=== PATIENT | female | born 1940 | race Caucasian/White ===

== ENCOUNTER 2017-02-12 17:31 | Inpatient (IN) ==
[2017-02-12] MEDS ORDERED: ASPIRIN 325 MG TABLET PO STA (17:57)
[2017-02-12] MEDS ORDERED: NITROGLYCERIN 2% OINT 1 INCH/GM PACK TOP STA (17:57)
--- NOTE | 2017-02-12 18:00 | EKG Report ---
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
[2017-02-12] MEDS ORDERED: NITROGLYCERIN 2% OINT 1 INCH/GM PACK TOP ONE (18:08)
[2017-02-12] MEDS ORDERED: ASPIRIN 325 MG TABLET ONE (18:08)
--- NOTE | 2017-02-12 18:22 | XRay Report ---
Portable chest Date: 02/12/2017 Clinical history: Chest pain Comparison: 11/21/2016 Technique: Portable AP sitting chest Findings: The heart is small and compressed by the over expanded lungs. Stable left subclavian atrioventricular pacemaker. Coronary artery stents. Chronic scarring in the lungs with minimal atelectasis at the left lung base. Stable mediastinum and osseous structures. Impression: COPD with chronic scarring. Subsegmental atelectasis at the left lung base. Coronary artery stents with left subclavian atrioventricular permanent pacemaker. PROCEDURE INTERPRETED AT [facility] DEPARTMENT OF RADIOLOGY Final Report Signed by: Dr. Yuki Montes
--- NOTE | 2017-02-12 18:24 | Emergency Department Note ---
Gladys Almazan Hilary, am scribing for, and in the presence of, Eugene Hartman MD 18:05. Minnie Almazan Charles R, MD, personally performed the services described in this documentation, ascribed by Rosa Graham in my presence, and it is both accurate and complete 824 . Arrival - Arrival Chief Complaint: Chest Pain ED Nursing Triage Note: pt had chest pain 2 hours s/p eating cereal and yogurt and milk this am. denies pain now Mode of Arrival: Stretcher Limitations: No Limitations Source: Patient, RN Notes Reviewed Time Seen by Provider: 02/12/17 17:47 - History of Present Illness HPI Narrative: Pt is a 76 y/o female presenting to the ED via EMS with c/o chest pain which onset 1600. Pt states she does not normally have chest pains and SOB but was experiencing both of those after breakfast. Pt confirms that it is now resolved but denies abdominal pain, sweating, or nausea. Pt has a pacemaker and stents. Onset (ago): hour(s) Consistency: now resolved Date of Last Menstrual Period: hyst Allergies/Adverse Reactions: Allergies Allergy/AdvReac Type Severity Reaction Status Date / Time codeine AdvReac Intermediate Nausea Verified 09/24/15 16:04 Hydromorphone [From Dilaudid] AdvReac Intermediate Nausea Verified 11/21/16 11: 13 metoclopramide [From Reglan] AdvReac Intermediate unsure - Verified 09/24/15 16: 08 just states "it does not agree with me" methiolate Allergy Severe RASH Uncoded 11/21/16 11:13 Home Medications: Home Medications Medication Instructions Recorded Confirmed Type Bisoprolol [Zebeta] 5 mg PO DAILY 09/24/15 11/21/16 History Cilostazol [Pletal] 50 mg PO BID 09/24/15 11/21/16 History Levothyroxine Tab [Synthroid Tab] 25 mcg PO DAILY@0700 09/24/15 11/21/16 History Magnesium Oxide 400 mg PO BID 09/24/15 11/21/16 History Montelukast Tab [Singulair Tab] 10 mg PO DAILY 09/24/15 11/21/16 History Nitroglycerin [Nitroglycerin SL 0.4 mg SL Q5M PRN 09/24/15 11/21/16 History Tab] Omeprazole [Prilosec] 20 mg PO BID 09/24/15 11/21/16 History Potassium Chloride Packet 20 meq PO QID 09/24/15 11/21/16 History Rosuvastatin Calcium [Crestor] 5 mg PO BEDTIME 09/24/15 11/21/16 History amLODIPine [Norvasc] 2.5 mg PO DAILY 09/24/15 11/21/16 History Acetaminophen Tab [Tylenol Tab] 325 mg PO BID tablet 09/29/15 11/21/16 Rx Aspirin Chew Tab 81 mg PO DAILY #0 tablet 09/29/15 11/21/16 Rx Clopidogrel [Plavix] 75 mg PO DAILY #30 tablet 09/29/15 11/21/16 Rx Isosorbide Dinitrate [Isordil] 10 mg PO BID #60 tablet 09/29/15 11/21/16 Rx Cholecalciferol (Vitamin D3) 50,000 unit PO DIRECTED 11/21/16 11/21/16 History [Vitamin D3] Review of System - Review of System 12 point system: reviewed and no additional remarkable complaints except as stated - Review of System Constitutional: Absent: diaphoresis, fever Cardiovascular: Present: chest pain, dyspnea on exertion Medical,Surgical,& Family Hx - Medical History Cardio: History of: Cardiac Dysrhythmia (atrial fibrillation prior to pacemaker) , CAD (history of coronary stent in the LAD and the right coronary artery-2006) , Hypertension, PA, Pacemaker (in about 2007), Cardiovascular Problems No history of: Aneurysm, Cerebrovascular Disease, Congenital Heart Disease, CHF, PVD, Valvular Heart Disease Neurology: No history of: Seizures HEENT: History of: 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 of stents in 2006 ), Cardiac Surgery (pacemaker put in 2008) Patient Denies: Femoral-Popliteal Bypass Graft, Carotid Endarterectomy, Internal Defibrillator, Vascular Access Devices Thoracic Surgeries: Patient denies;: Organ Transplant, Lobectomy Neurologic Surgeries: Patient denies: Neurologic Surgery HEENT Surgeries: Surgical HX of: Tonsilectomy & Adenoidectomy Patient denies: Carotid Endarterectomy, Eye Surgery, Thyroid Surgery Abdominal Surgeries: Surgical HX of: Appendectomy, Cholecystectomy, Colonoscopy , EGD Patient denies: Gastric Bypass Surgery, Hernia Repair, Splenectomy Reproductive Surgeries: Surgical HX of;: Breast Surgery (neg. breast biopsy), Gynecologic Surgery, Hysterectomy Patient denies;: Section, Dilation and Curettage, Tubal Ligation Orthopedic Surgeries: Patient denies;: Implanted Devices, Orthopedic Surgery, Spinal Surgery, Total Hip Replacement, Total Knee Replacement - Family History Family History: Reports;: Family Diabetes, Family Heart Disease Denies;: Family Anesthesia Reaction, Family Cancer, Family Hypertension, Family Psychiatric Problems, Family Stroke - Social History Smoking Status: Never smoker Frequency of Alcohol Use: None Type of Drug Use: None Exam Vital Signs: Vital Signs Temperature 97.3 F L 02/12/17 17:38 Pulse Rate 62 02/12/17 17:38 Respiratory Rate 18 02/12/17 17:45 Blood Pressure 144/58 02/12/17 17:38 O2 Sat by Pulse Oximetry 98 02/12/17 17:38 - General General appearance: alert, in no apparent distress - Head Head exam: Present: atraumatic, normocephalic - Eye Eye exam: Present: normal appearance, PERRL, EOMI - ENT ENT exam: Present: mucous membranes moist, TM's normal bilaterally - Neck Neck exam: Present: full ROM, trachea midline. Absent: tenderness - Chest Chest inspection: Present: symmetric chest wall rise. Absent: tenderness - Respiratory Respiratory exam: Present: normal lung sounds bilaterally - Cardiovascular Cardiovascular exam: Present: bradycardia - Abdominal Exam Abdominal exam: Present: soft. Absent: distention, tenderness - Extremities Exam Extremities exam: Present: full ROM. Absent: tenderness - Back Exam Back exam: Present: full ROM. Absent: tenderness - Neurological Exam Neurological exam: Present: alert, oriented X3, CN II-XII intact. Absent: motor sensory deficit - Psychiatric Psychiatric exam: Present: normal affect, normal mood - Skin Skin exam: Present: warm, dry, intact, normal color. Absent: rash Course - Consultations Consultation #1: Dr. Pinto will admit for Dr. Guerra Time: 18:53 Results - Labs CBC & BMP: 02/12/17 18:38 02/12/17 18:38 Disposition Clinical Impression: Chest pain, Coronary artery disease Case discussed with: patient Disposition: Still a Patient Condition: Stable Time of Disposition: 18:54
[2017-02-12 19:01] LABS: Basophils % 0.3 % (0.0-0.8); Eosinophils # 0.1 10*3/uL (0.0-0.87); Eosinophils % 0.7 % (0.00-10.9); Hemoglobin 13.4 GM/DL (12.0-16.0); Immature Granulocytes % 0.1 %; Immature Granulocytes Absolute 0.01 #; Lymphocytes # 1.4 10*3/uL (1.4-4.0); Lymphocytes % 19.5 % (21.3-54.2); Mean Corpuscular HGB Conc 35.3 GM/DL (32-36); Mean Corpuscular Hemoglobin 31 PG (27-34); Mean Platelet Volume 9.3 FL (9.6-12.0); Monocytes # 0.5 10*3/uL (0.11-0.8); Monocytes % 6.7 % (1.7-12.7); Neutrophils # 5.4 10*3/uL (1.4-7.4); Neutrophils % 72.7 % (38.7-73.9); Platelet Count 223 T/CUMM (130-400); Red Blood Count 4.27 MC/CUMM (3.8-5.5); Red Cell Distribution Width 12.7 % (9.3-17.3); White Blood Count 7.4 T/CUMM (4-12)
[2017-02-12 19:11] LABS: PT Patient Result 10.2 SECS
[2017-02-12 19:25] LABS: Alanine Aminotransferase 19 U/L (13-56); Albumin 3.9 G/DL (3.4-5.0); Alkaline Phosphatase 81 U/L (45-117); Aspartate Amino Transferase 16 U/L (0-37); Bilirubin,Total < 0.39 MG/DL (0.2-1.0); Blood Urea Nitrogen 7 MG/DL (7-18); Calcium 9.2 MG/DL (8.5-10.1); Glucose 108 MG/DL (74-106); Magnesium 2.5 MG/DL (1.8-2.4); Osmolality,Calculated 277.4 MOS/KG (273-304); Potassium 4.1 MMOL/L (3.5-5.1); Sodium 140 MMOL/L (136-145); Total Protein 7.3 G/DL (6.4-8.3)
[2017-02-12] MEDS ORDERED: POTASSIUM CHLORIDE 20 MEQ TABLET PO PRN (20:37)
[2017-02-12] MEDS ORDERED: MAGNESIUM SULF RIDER 4 GM in PREMIX 1 EACH IV PRN (20:37)
[2017-02-12] MEDS ORDERED: DEXTROSE 50% 25 GM/50 ML VIAL IV PRN (20:37)
[2017-02-12] MEDS ORDERED: GLUCAGON 1 MG VIAL IM PRN (20:37)
[2017-02-12] MEDS ORDERED: ONDANSETRON 4 MG/2 ML VIAL IV PRN (20:37)
[2017-02-12] MEDS ORDERED: MAGNESIUM SULF RIDER 2 GM in PREMIX 1 EACH IV PRN (20:37)
[2017-02-12] MEDS: SODIUM CHLORIDE 0.9% 1,000 ML IV SCH (21:22)
[2017-02-12] MEDS: ENOXAPARIN 80 MG/0.8 ML SYRINGE SUBCUT SCH (21:23)
[2017-02-12] MEDS: INSULIN REGULAR 100 UNIT/ML SUBCUT SCH (22:05)
--- NOTE | 2017-02-12 22:42 | EKG Report ---
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
[2017-02-13] MEDS: NITROGLYCERIN 2% OINT 1 INCH/GM PACK TOP SCH ×4 (00:50→17:24)
[2017-02-13 01:05] LABS: Basophils % 0.4 % (0.0-0.8); Eosinophils # 0.1 10*3/uL (0.0-0.87); Eosinophils % 2.1 % (0.00-10.9); Hematocrit 37.1 VOL% (35.7-47.0); Hemoglobin 12.9 GM/DL (12.0-16.0); Immature Granulocytes % 0.4 %; Immature Granulocytes Absolute 0.02 #; Lymphocytes # 1.6 10*3/uL (1.4-4.0); Lymphocytes % 30.7 % (21.3-54.2); Mean Corpuscular HGB Conc 34.8 GM/DL (32-36); Mean Corpuscular Hemoglobin 32 PG (27-34); Mean Corpuscular Volume 91.4 FL (87-102); Mean Platelet Volume 9.6 FL (9.6-12.0); Monocytes # 0.4 10*3/uL (0.11-0.8); Monocytes % 8.2 % (1.7-12.7); Neutrophils # 3.1 10*3/uL (1.4-7.4); Neutrophils % 58.2 % (38.7-73.9); Platelet Count 184 T/CUMM (130-400); Red Blood Count 4.06 MC/CUMM (3.8-5.5); Red Cell Distribution Width 12.5 % (9.3-17.3); White Blood Count 5.3 T/CUMM (4-12)
[2017-02-13] MEDS ORDERED: PNEUMOCOCCAL VACCINE (13 VALENT) 0.5 ML SYRINGE IM ONE (01:13)
[2017-02-13 01:40] LABS: Alanine Aminotransferase 16 U/L (13-56); Albumin 3.1 G/DL (3.4-5.0); Alkaline Phosphatase 69 U/L (45-117); Aspartate Amino Transferase 17 U/L (0-37); Bilirubin,Total < 0.39 MG/DL (0.2-1.0); Blood Urea Nitrogen 7 MG/DL (7-18); Calcium 8.3 MG/DL (8.5-10.1); Cholesterol 218 MG/DL (50-200); Glucose 99 MG/DL (74-106); HDL Cholesterol 70 MG/DL (40-60); Magnesium 2.3 MG/DL (1.8-2.4); Potassium 3.9 MMOL/L (3.5-5.1); Risk Ratio 3.11; Sodium 143 MMOL/L (136-145); Total Protein 6.4 G/DL (6.4-8.3); Triglycerides 95 MG/DL (2-150)
--- NOTE | 2017-02-13 08:53 | XRay Report ---
Exam: XR chest 2V Indication: Shortness of breath Comparison study: 02/12/2017 Findings: Left chest pacemaker device and wire leads appear in similar position. Lungs are mildly hyperexpanded with interstitial prominence in the perihilar regions and lung bases, suggesting a degree of underlying scarring. This is most prominent in the right hilar region which appears grossly unchanged although the possibility of underlying interstitial infiltrates are difficult to exclude. There is no focal consolidation. There is no pneumothorax or pleural effusion. Osseous structures appear stable from prior. Impression: Essentially stable appearance of the chest with suggestion of underlying interstitial scarring. Minimal superimposed interstitial infiltrates are difficult to exclude. PROCEDURE INTERPRETED AT [facility] DEPARTMENT OF RADIOLOGY Final Report Signed by: Juan Murphy
[2017-02-13] MEDS ORDERED: PANTOPRAZOLE 40 MG TABLET PO SCH (09:00)
[2017-02-13] MEDS ORDERED: ASPIRIN EC 325 MG TABLET PO SCH (09:00)
[2017-02-13] MEDS: ENOXAPARIN 80 MG/0.8 ML SYRINGE SUBCUT SCH ×2 (09:07→21:25)
[2017-02-13] MEDS: INSULIN REGULAR 100 UNIT/ML SUBCUT SCH ×4 (09:08→21:25)
--- NOTE | 2017-02-13 11:30 | Cardiology History & Physical ---
Addendum entered and electronically signed by Jeny Eubanks NP 02/13/17 12:10 : Upon review of her records and after discussion with the patient, her corrected home medication list is listed as follows: Amlodipine 2.5 mg 1 tablet p.o. daily Aspirin 81 mg 1 tablet p.o. daily Bisoprolol fumarate 10 mg one half tablet orally twice daily Cilostazol 50 mg 1 p.o. twice daily Isosorbide dinitrate 10 mg 1 p.o. twice daily Levothyroxine 50 mcg 1/2-1 tablet orally daily Magnesium oxide 400 mg 1 p.o. twice daily Nitroglycerin 0.4 mg sublingual tablet 1 every 5 minutes 3 as needed Omeprazole 20 mg 1 p.o. twice daily Plavix 75 mg 1 p.o. daily Potassium chloride ER 20 mEq 1 p.o. 4 times daily Singulair 10 mg 1 p.o. daily Vitamin D2 50,000 unit 1 p.o. weekly Tranxene 3.75 mg 1/2-1 tablet every 6 hours as needed Original Note: <Jeny Eubanks - Last Filed: 02/13/17 11:59> Assessment and Plan - Time spent with patient Time spent with patient: Greater than 30 minutes (due to assessment, plan, and documentation) (1) Chest pain Status: Acute Assessment and plan: Has had 3 sets of negative troponins and unremarkable EKG. Some typical features of angina. Will hold NPO and further discuss cardiac evaluation with Dr. Pinto. Current Visit: Yes (2) Coronary artery disease Status: Chronic Assessment and plan: On 07/30/2007, Ms. Velez received a stent to the proximal LAD and to the proximal RCA. One month later, she underwent repeat catheterization and underwent stent of the LAD for in-stent restenosis. Since that time she has had 2 subsequent heart catheterizations, the most recent being 09/27/2015 following a non-STEMI. At that time she was found to have significant disease in a small first and second diagonal (not for intervention), mild disease throughout the remainder of the coronary arterial system, mild to moderate disease of the ostium of the RCA, widely patent prior coronary stents. At that time she was found to have normal global LV systolic function with EF greater than 65%. Current Visit: Yes (3) History of cardiac pacemaker Status: Chronic Assessment and plan: She recently underwent pacemaker generator change by Dr. Pinto on November 21, 2016. Current Visit: Yes (4) Hypertension Status: Chronic Assessment and plan: The patient's home medications do not match what she reports she is taking. We will ask the nurses to correct these and continue her home medications. Will monitor and make adjustments as needed. Current Visit: Yes (5) History of coronary artery stent placement Status: Chronic Assessment and plan: On 07/30/2007, Ms. Velez received a stent to the proximal LAD and to the proximal RCA. One month later, she underwent repeat catheterization and underwent stent of the LAD for in-stent restenosis. Since that time she has had 2 subsequent heart catheterizations, the most recent being 09/27/2015 following a non-STEMI. At that time she was found to have significant disease in a small first and second diagonal (not for intervention), mild disease throughout the remainder of the coronary arterial system, mild to moderate disease of the ostium of the RCA, widely patent prior coronary stents. At that time she was found to have normal global LV systolic function with EF greater than 65%. Current Visit: No (6) Hyperlipidemia Status: Chronic Assessment and plan: Crestor is listed as a home medication, but the patient reports she was taken off of this at her previous visit with her PCP and is unsure why. She denies any knowledge of an allergy or intolerance to statin therapy so we will resume her Crestor at a low dose and see how she tolerates. 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 POLLACK PCP: DR. MATAMOROS Ms. Velez is a 76 year old female with a history of coronary artery disease status post coronary artery stent placement, hypercholesterolemia, sick sinus syndrome with symptomatic bradycardia, status post dual-chamber pacemaker. On 07/30/2007, Ms. Velez received a stent to the proximal LAD and to the proximal RCA. One month later, she underwent repeat catheterization and underwent stent of the LAD for in-stent restenosis. Since that time she has had 2 subsequent heart catheterizations, the most recent being 09/27/2015 following a non-STEMI. At that time she was found to have significant disease in a small first and second diagonal (not for intervention), mild disease throughout the remainder of the coronary arterial system, mild to moderate disease of the ostium of the RCA, widely patent prior coronary stents. At that time she was found to have normal global LV systolic function with EF greater than 65%. She recently underwent pacemaker generator change by Dr. Pinto on November 21, 2016. She presented to the emergency room last night with complaints of chest pain. Her sister, and [facility] professional nursing tutor, is at the bedside and helps providing some of the history. She tells me yesterday morning around 8 AM she had Cheerios and yogurt for breakfast. About 2 and half hours later she tells me she got up from the couch and "felt funny." She reports she had an episode of dizziness followed by midsternal chest pain. She describes the pain as a tightness and rates it as a 5-6 out of 10. She did not have any associated shortness of breath, diaphoresis, nausea, vomiting, palpitations, syncope. She called her sister, Supriya Arredondo, and after her arrival she took 3 sublingual nitroglycerin with very little relief. Her sister then insisted that she go to the emergency room for further evaluation. After her arrival, she was given an additional nitroglycerin which relieved her pain. Her pain lasted approximately 2-3 hours in duration. She also reports this pain she had yesterday feels very similar to the pain that she had with her [place] in 2015. Her sister and other family are also present and reports that for the last several months she has had dyspnea on exertion when walking. Short distances. Her sister tells me that she has noticed this even before her pacemaker generator battery was changed and she has continued to notice it during the past several weeks. Currently, she has had 3 sets of negative troponins. Her EKG shows no acute ischemic changes. She is AV paced. Creatinine is 0.7, BNP 94, potassium 3.9. CBC is normal. Cholesterol is elevated to 18 with an LDL of 140, HDL [address] Pinto to follow with further plan and recommendations. Home Medications Medication Instructions Recorded Confirmed Type Levothyroxine Tab [Synthroid Tab] 25 mcg PO DAILY@0700 09/24/15 02/13/17 History Magnesium Oxide 400 mg PO BID 09/24/15 02/12/17 History Montelukast Tab [Singulair Tab] 10 mg PO BEDTIME 09/24/15 02/12/17 History Nitroglycerin [Nitroglycerin SL 0.4 mg SL Q5M PRN 09/24/15 02/12/17 History Tab] Omeprazole [Prilosec] 20 mg PO BID 09/24/15 02/12/17 History Rosuvastatin Calcium [Crestor] 5 mg PO BEDTIME 09/24/15 02/12/17 History Isosorbide Dinitrate [Isordil] 10 mg PO BID #60 tablet 09/29/15 02/12/17 Rx Potassium Chloride [Klor-Con M20] 20 meq PO QID 02/12/17 02/12/17 History Aspirin [Aspirin EC] 81 mg PO DAILY 02/13/17 02/13/17 History Bisoprolol Fumarate 5 mg PO BID 02/13/17 02/13/17 History Cilostazol [Pletal] 50 mg PO BID 02/13/17 02/13/17 History Clopidogrel [Plavix] 75 mg PO DAILY 02/13/17 02/13/17 History Clorazepate [Tranxene] 3.75 mg PO Q6H PRN 02/13/17 02/13/17 History Ergocalciferol (Vitamin D2) 50,000 unit PO Q7DAY 02/13/17 02/13/17 History [Vitamin D2] amLODIPine [Norvasc] 2.5 mg PO DAILY 02/13/17 02/13/17 History Allergies Allergy/AdvReac Type Severity Reaction Status Date / Time codeine AdvReac Intermediate Nausea Verified 09/24/15 16:04 Hydromorphone [From Dilaudid] AdvReac Intermediate Nausea Verified 11/21/16 11: 13 metoclopramide [From Reglan] AdvReac Intermediate unsure - Verified 09/24/15 16: 08 just states "it does not agree with me" methiolate Allergy Severe RASH Uncoded 11/21/16 11:13 Review of systems: - Constitutional: Present: As per HPI. Absent: anorexia, chills, daytime sleepiness, excessive sweating, fever(s), frequent falls, headache(s), increased appetite, lethargy, malaise, night sweats, stops breathing during sleep, weakness, weight gain, weight loss, fatigue. - EENT Eyes: Present: As per HPI. Absent: blurry vision, diplopia, loss of vision Ears: Present: As per HPI. Absent: decreased hearing, ear discharge, ear pain Nose, mouth and throat: Present: As per HPI. Absent: dysphagia, epistaxis, headache(s), hoarseness, lip swelling, nasal congestion, neck mass, neck pain, sinus pressure, sore throat, throat swelling, tongue swelling, vertigo - Cardiovascular: Present: chest pain at rest, dyspnea on exertion, edema, as per HPI. Absent: chest pain with activity, dyspnea, claudication, diaphoresis, radiating jaw, neck or arm pain, lightheadedness, orthopnea, palpitations, PND - Respiratory: Present: dyspnea on exertion, as per HPI. Absent: dyspnea, cough , hemoptysis, wheezing, snoring, pain on inspiration - Gastrointestinal: Present: As per HPI. Absent: abdominal pain, bloating, change in bowel habits, constipation, diarrhea, heartburn, hematemesis, hematochezia, loose stools, melena, nausea, vomiting - Genitourinary: Present: As per HPI. Absent: difficulty urinating, dysuria, flank pain, hematuria, nocturia, urinary frequency, urinary incontinence - Musculoskeletal: Present: As per HPI. Absent: arthralgias, back pain, joint swelling, limited range of motion, muscle cramps, muscle weakness, myalgias - Neurological: Present: dizziness, As per HPI. Absent: abnormal gait, abnormal speech, behavioral changes, confusion, convulsions, disequilibrium, focal weakness, frequent falls, headache(s), memory loss, numbness, paresthesias, radicular pain, syncope, tremor(s) - Psychiatric: Present: anxiety, As per HPI. Absent: confusion, depression, panic attacks - Endocrine: Present: As per HPI. Absent: cold intolerance, fatigue, heat intolerance, polydipsia, polyphagia - Hematologic/Lymphatic: Present: As per HPI. 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 of stents in 2006 ), Cardiac Surgery (pacemaker put in 2008) Patient Denies: Femoral-Popliteal Bypass Graft, Carotid Endarterectomy, Internal Defibrillator, Vascular Access Devices Thoracic Surgeries: Patient denies;: Organ Transplant, Lobectomy Neurologic Surgeries: Patient denies: Neurologic Surgery HEENT Surgeries: Surgical HX of: Tonsilectomy & Adenoidectomy Patient denies: Carotid Endarterectomy, Eye Surgery, Thyroid Surgery Abdominal Surgeries: Surgical HX of: Appendectomy, Cholecystectomy, Colonoscopy , EGD Patient denies: Gastric Bypass Surgery, Hernia Repair, Splenectomy Reproductive Surgeries: Surgical HX of;: Breast Surgery (neg. breast biopsy), Gynecologic Surgery, Hysterectomy Patient denies;: Section, Dilation and Curettage, Tubal Ligation Orthopedic Surgeries: Patient denies;: Implanted Devices, Orthopedic Surgery, Spinal Surgery, Total Hip Replacement, Total Knee Replacement - Family History Family History: Reports;: Family Diabetes, Family Heart Disease Denies;: Family Anesthesia Reaction, Family Cancer, Family Hypertension, Family Psychiatric Problems, Family Stroke - Social History Smoking Status: Never smoker Frequency of Alcohol Use: None Type of Drug Use: None Marital Status: Functional capacity: independent ambulation Cardiology Physical Exam - Constitutional Vitals: Vital Signs Temp Pulse Resp BP Pulse Ox 97.4 F L 59 L 18 152/71 99 02/13/17 08:00 02/13/17 08:00 02/13/17 08:00 02/13/17 08:00 02/13/17 08:00 Intake and Output 02/12/17 02/13/17 02/13/17 22:59 06:59 14:59 Intake Total 60 / 60 Output Total 700 / 700 Balance -640 / -640 Intake: Oral 60 / 60 Output: Urine 700 / 700 Other: Voiding Method Toilet Urinal # Voids 1 # Bowel Movements 0 Weight 152 lb 152 lb Exam: General appearance: Pleasant and cooperative. Normal weight, no acute distress. - Head Head exam: Present: normal inspection, normocephalic, atraumatic. Absent: hematoma, laceration - Eye Eye exam: Present: EOMI. Absent: conjunctival injection, nystagmus, periorbital swelling, scleral icterus, laceration to eyelids Pupils: Present: PERRL. Absent: constricted, dilated, fixed, irregular, unequal - ENT ENT exam: Present: normal exam, normal external ear exam - Neck Neck exam: Present: normal inspection. Absent: lymphadenopathy, meningismus, tenderness, thyromegaly - Respiratory Respiratory exam: Present: clear to auscultation bilaterally. Absent: accessory muscle use, chest wall tenderness - Cardiovascular Cardiovascular exam: Present: regular rate and rhythm. Absent: carotid bruit, gallop, JVD, rubs, murmur - GI/Abdominal GI/Abdominal exam: Present: normal bowel sounds, soft. Absent: distended, firm , guarding, hernia, mass, tenderness, rebound. - Extremities Exam Extremities exam: Present: normal inspection, normal capillary refill. Upper extremity pulses 2+. Lower extremity pulses 2+. 1-2+ pitting edema to bilateral lower extremities. Absent: calf tenderness - Back Exam Back exam: Present: normal inspection. Absent: muscle spasm, vertebral tenderness - Neurological Exam Neurological exam: Present: alert, oriented X3, grossly intact without resting or essential tremor - Psychiatric Psychiatric exam: Present: normal affect, normal mood - Skin Skin exam: Present: normal color, warm, dry, intact. Absent: cyanosis, diaphoretic, rash, urticaria Result/EKG - Labs CBC & BMP: 02/13/17 00:50 02/13/17 00:50 Lab Results: I have reviewed the past 24 hour labs Labs: Laboratory Results - last 24 hr 02/12/17 02/12/17 02/13/17 20:54 21:30 00:50 WBC 5.3 RBC 4.06 Hgb 12.9 Hct 37.1 MCV 91.4 MCH 32 MCHC 34.8 RDW 12.5 Plt Count 184 MPV 9.6 Neut % (Auto) 58.2 Lymph % (Auto) 30.7 Mccone % (Auto) 8.2 Eos % (Auto) 2.1 Baso % (Auto) 0.4 Neut # (Auto) 3.1 Lymph # (Auto) 1.6 Mccone # (Auto) 0.4 Eos # (Auto) 0.1 Baso # (Auto) 0.0 Immature Gran % 0.4 Nucleated RBC % 0.0 Immature Gran # 0.02 Nucleated RBCs # 0.00 Sodium Potassium Chloride Carbon Dioxide Anion Gap BUN Creatinine GFR Calculation BUN/Creatinine Ratio Glucose POC Glucose 95 Calculated Osmolality Calcium Magnesium Total Bilirubin AST ALT Alkaline Phosphatase Troponin I < 0.015 B-Natriuretic Peptide Total Protein Albumin Globulin Albumin/Globulin Ratio Triglycerides Cholesterol LDL Cholesterol VLDL Cholesterol HDL Cholesterol Heart Disease Risk Ratio 02/13/17 02/13/17 02/13/17 00:50 00:50 00:50 WBC RBC Hgb Hct MCV MCH MCHC RDW Plt Count MPV Neut % (Auto) Lymph % (Auto) Mccone % (Auto) Eos % (Auto) Baso % (Auto) Neut # (Auto) Lymph # (Auto) Mccone # (Auto) Eos # (Auto) Baso # (Auto) Immature Gran % Nucleated RBC % Immature Gran # Nucleated RBCs # Sodium 143 Potassium 3.9 Chloride 109 H Carbon Dioxide 25 Anion Gap 12.9 BUN 7 Creatinine 0.70 GFR Calculation 83 BUN/Creatinine Ratio 10.00 Glucose 99 POC Glucose Calculated Osmolality 282.0 Calcium 8.3 L Magnesium 2.3 Total Bilirubin < 0.39 AST 17 ALT 16 Alkaline Phosphatase 69 Troponin I < 0.015 B-Natriuretic Peptide 94 Total Protein 6.4 Albumin 3.1 L Globulin 3.3 Albumin/Globulin Ratio 0.9 L Triglycerides 95 Cholesterol 218 H LDL Cholesterol 140.0 VLDL Cholesterol 19.0 HDL Cholesterol 70 H Heart Disease Risk Ratio 3.11 02/13/17 02/13/17 06:07 07:54 WBC RBC Hgb Hct MCV MCH MCHC RDW Plt Count MPV Neut % (Auto) Lymph % (Auto) Mccone % (Auto) Eos % (Auto) Baso % (Auto) Neut # (Auto) Lymph # (Auto) Mccone # (Auto) Eos # (Auto) Baso # (Auto) Immature Gran % Nucleated RBC % Immature Gran # Nucleated RBCs # Sodium Potassium Chloride Carbon Dioxide Anion Gap BUN Creatinine GFR Calculation BUN/Creatinine Ratio Glucose POC Glucose 87 92 Calculated Osmolality Calcium Magnesium Total Bilirubin AST ALT Alkaline Phosphatase Troponin I B-Natriuretic Peptide Total Protein Albumin Globulin Albumin/Globulin Ratio Triglycerides Cholesterol LDL Cholesterol VLDL Cholesterol HDL Cholesterol Heart Disease Risk Ratio - EKG EKG results: interpreted by me (AV paced ) <Sergio Pinto - Last Filed: 02/13/17 14:49> History of Present Illness History of present illness: I personally interviewed and examined the patient and chart reviewed. I discussed the case with Hilario Eubanks NP. I agree with the assessment with the following addendum's and information. Ms. Velez is a 76 year old female who is had prior coronary stenting and required repeat stenting for in-stent stenosis previously. The patient is done well though until recently with the last 24-48 hours and had an episode of midsternal chest pain with shortness of breath. She is not clear if this is similar to what she's had before. With this she has felt fatigue and loss of energy. She continues to have episodes of the chest pain. In light of her findings I think that this patient would best be served with cardiac catheterization for reevaluation of the situation and coronary arteries. I discussed this procedure detail with the patient and her family (indication procedure have been carried out in the risk. I discussed pacemaker implantation procedure with the patient and available family. I reviewed with them the indications of the procedure as well as the basis of how the procedure itself would be carried out. I also reviewed with them the possible risks which include but not necessarily limited to surgical site bruising pain swelling or pocket hematoma that may require surgical evacuation. Discussed that the pain, swelling, bruising could be significant. Also discussed the possibility of surgical site or pocket infection that may require oral or IV antibiotics or even the possibility of surgical drainage of the pocket or even removal of the pacemaker system. Also discussed the possibility of hemothorax or pneumothorax that may require chest tube and possible blood transfusion. Also discussed the possibility of myocardial perforation that may lead to pericardial tamponade and the need for pericardiocentesis and blood transfusion. They voice understanding and agree to proceed. We will discuss this with Dr. Gasper Sherman to carry out the procedure. Cardiology Physical Exam - Constitutional Vitals: Vital Signs Temp Pulse Resp BP Pulse Ox 97.6 F 114 H 20 147/82 97 02/13/17 12:00 02/13/17 12:00 02/13/17 12:00 02/13/17 12:00 02/13/17 12:00 Intake and Output 02/12/17 02/13/17 02/13/17 23:59 07:59 15:59 Intake Total 60 / 60 1120 / 1120 Output Total 700 / 700 2 / 2 Balance -640 / -640 1118 / 1118 Intake: IV 1000 / 1000 Ns 1,000 ml @ 65 mls/hr 1000 / 1000 IV .[id number] [facility] Rx#: [id number] Oral 60 / 60 120 / 120 Output: Urine 700 / 700 2 / 2 Other: Voiding Method Toilet Urinal Bedside Commode # Voids 1 1,000 # Bowel Movements 0 Weight 68.946 kg 68.946 kg Patient Weight 02/13/17 23:59 Weight 68.946 kg Result/EKG - Labs CBC & BMP: 02/13/17 00:50 02/13/17 00:50 Labs: Laboratory Results - last 24 hr 02/12/17 02/12/17 02/13/17 20:54 21:30 00:50 WBC 5.3 RBC 4.06 Hgb 12.9 Hct 37.1 MCV 91.4 MCH 32 MCHC 34.8 RDW 12.5 Plt Count 184 MPV 9.6 Neut % (Auto) 58.2 Lymph % (Auto) 30.7 Mccone % (Auto) 8.2 Eos % (Auto) 2.1 Baso % (Auto) 0.4 Neut # (Auto) 3.1 Lymph # (Auto) 1.6 Mccone # (Auto) 0.4 Eos # (Auto) 0.1 Baso # (Auto) 0.0 Immature Gran % 0.4 Nucleated RBC % 0.0 Immature Gran # 0.02 Nucleated RBCs # 0.00 Sodium Potassium Chloride Carbon Dioxide Anion Gap BUN Creatinine GFR Calculation BUN/Creatinine Ratio Glucose POC Glucose 95 Calculated Osmolality Calcium Magnesium Total Bilirubin AST ALT Alkaline Phosphatase Troponin I < 0.015 B-Natriuretic Peptide Total Protein Albumin Globulin Albumin/Globulin Ratio Triglycerides Cholesterol LDL Cholesterol VLDL Cholesterol HDL Cholesterol Heart Disease Risk Ratio Free T4 TSH 3rd Generation 02/13/17 02/13/17 02/13/17 00:50 00:50 00:50 WBC RBC Hgb Hct MCV MCH MCHC RDW Plt Count MPV Neut % (Auto) Lymph % (Auto) Mccone % (Auto) Eos % (Auto) Baso % (Auto) Neut # (Auto) Lymph # (Auto) Mccone # (Auto) Eos # (Auto) Baso # (Auto) Immature Gran % Nucleated RBC % Immature Gran # Nucleated RBCs # Sodium 143 Potassium 3.9 Chloride 109 H Carbon Dioxide 25 Anion Gap 12.9 BUN 7 Creatinine 0.70 GFR Calculation 83 BUN/Creatinine Ratio 10.00 Glucose 99 POC Glucose Calculated Osmolality 282.0 Calcium 8.3 L Magnesium 2.3 Total Bilirubin < 0.39 AST 17 ALT 16 Alkaline Phosphatase 69 Troponin I < 0.015 B-Natriuretic Peptide 94 Total Protein 6.4 Albumin 3.1 L Globulin 3.3 Albumin/Globulin Ratio 0.9 L Triglycerides 95 Cholesterol 218 H LDL Cholesterol 140.0 VLDL Cholesterol 19.0 HDL Cholesterol 70 H Heart Disease Risk Ratio 3.11 Free T4 TSH 3rd Generation 02/13/17 02/13/17 02/13/17 06:07 07:54 Unknown WBC RBC Hgb Hct MCV MCH MCHC RDW Plt Count MPV Neut % (Auto) Lymph % (Auto) Mccone % (Auto) Eos % (Auto) Baso % (Auto) Neut # (Auto) Lymph # (Auto) Mccone # (Auto) Eos # (Auto) Baso # (Auto) Immature Gran % Nucleated RBC % Immature Gran # Nucleated RBCs # Sodium Potassium Chloride Carbon Dioxide Anion Gap BUN Creatinine GFR Calculation BUN/Creatinine Ratio Glucose POC Glucose 87 92 Calculated Osmolality Calcium Magnesium Total Bilirubin AST ALT Alkaline Phosphatase Troponin I B-Natriuretic Peptide Total Protein Albumin Globulin Albumin/Globulin Ratio Triglycerides Cholesterol LDL Cholesterol VLDL Cholesterol HDL Cholesterol Heart Disease Risk Ratio Free T4 1.08 TSH 3rd Generation 3.000
[2017-02-13] MEDS ORDERED: NITROGLYCERIN SL 0.4 MG TABLET SL PRN (12:03)
[2017-02-13] MEDS: SODIUM CHLORIDE 0.9% 1,000 ML IV SCH (12:07)
[2017-02-13] MEDS: CLOPIDOGREL 75 MG TABLET PO SCH (12:16)
[2017-02-13] MEDS: MAGNESIUM OXIDE 400 MG TABLET PO SCH ×2 (12:28→21:20)
[2017-02-13] MEDS: POTASSIUM CHLORIDE 20 MEQ TABLET PO SCH ×3 (12:28→21:18)
[2017-02-13] MEDS: ISOSORBIDE DINITRATE 10 MG TABLET PO SCH ×2 (12:28→21:20)
[2017-02-13 12:46] LABS: Free T4 (Free Thyroxine) 1.08 NG/DL (0.76-1.46)
[2017-02-13] MEDS ORDERED: diphenhydrAMINE CAP 25 MG CAPSULE PO ONE (13:18)
[2017-02-13] MEDS ORDERED: DIAZEPAM 5 MG TABLET PO ONE (13:23)
--- NOTE | 2017-02-13 13:41 | Event Note ---
Mrs. Velez reports recurrent chest pain and dyspnea a lot of fatigue. She has significant history of CAD/interventions percutaneously. She ruled out for [place]. I discussed with the patient arrest and benefits of heart catheterization including but not limited to: , stroke, heart attack, vascular damage, reaction to medicine or dye, bleeding requiring blood transfusion, failure the procedure, possible need for planned her emergency heart surgery. I have answered all the patient's questions and the patient is agreeable to proceed.
[2017-02-13] MEDS ORDERED: LIDOCAINE 1% 20 ML VIAL ONE (13:53)
[2017-02-13] MEDS ORDERED: MIDAZOLAM 2 MG/2 ML VIAL ONE (13:56)
[2017-02-13] MEDS ORDERED: CLOPIDOGREL 300 MG TABLET ONE (15:10)
[2017-02-13 16:38] LABS: CKMB % 2.1 %
[2017-02-13 16:40] LABS: Troponin I Only 0.076 NG/ML (0.00-0.045)
--- NOTE | 2017-02-13 17:59 | Cardiac Catheterization ---
Date of Procedure:: 02/13/17 Post-op diagnosis: same Procedure: Procedures performed: 1. Coronary angiography 2. Angioplasty stenting of critical ostial right coronary artery disease with drug-eluting stent (4.0 x 12 Synergy) 3. Right femoral arterial reclosure with Angio-Seal device Brief summary: Mrs. Velez is a 76-year-old with symptoms concerning for acute coronary syndrome. We will rule out for IA. She has history of multiple percutaneous interventions. Description of procedure: After obtaining informed consent, the right groin was prepped and draped in the usual sterile fashion. Next a short 6 English sheath was placed in the right femoral artery using a modified Seldinger technique, after the patient received IV sedation and local anesthetic. Next a JL4 catheter was advanced over a guidewire under fluoroscopic guidance, and was engaged to the left coronary artery after which angiography was performed in multiple views. This was then removed over a wire, and a JR4 catheter was advanced in similar fashion, but would not engage the right coronary artery, but I did perform indirect angiography in multiple views. Percutaneous coronary intervention was performed as described below. After intervention, hemostasis was obtained with Angio-Seal device with no residual bleeding. She was transferred from the cytology laboratory manager in good condition without complication. Percutaneous coronary intervention: Mrs. Velez right of the cytology laboratory manager on Lovenox and aspirin and Plavix. She was given additional Plavix 600 mg a day in the procedure. I tried to engage the right coronary artery with a hockey- stick guiding catheter without success. Then tried an AL-1 and AR-1 again without success. Finally I advanced an AR-2 to difficulty was able to engage the critical ostial calcific lesion. I crossed it with a Prowater while the difficulty. Next I advanced a 3.5 balloon and dilated the ostium had just above nominal pressures. This is removed and a 4.0 x 12 Synergy stent was advanced across area of disease and was deployed at approximately rated burst pressure which achieve an excellent management result. The patient at tolerated the procedure well was transferred to the catheter good condition. Coronary angiography: Left main Rivas is normal developed and free of disease. The left anterior descending has a discrete proximal area is quite ectatic. Is followed by a 60% proximal stenosis just before the takeoff of the first septal. There is another 60% mid LAD stenosis after the takeoff of the average caliber second diagonal. The first diagonal is fairly thin and has a 90 % ostial stenosis. The LAD is quite tortuous distally and wraps around the apex. Circumflex is slightly smaller than average caliber giving off to slightly thinner than average obtuse marginal branches. There is only mild disease noted approximate. The right coronary artery is large than average caliber is a dominant vessel. There is a widely patent, mildly oversized- appearing mid RCA stent. There is a very discrete moderately calcified ostial RCA lesion of greater than 95%. There is a thin there are than average but long PDA and 2 thinner than average but long posterolaterals. The second posterolateral fills slowly as it has competition from left to right collaterals. Impression: 1. Right dominant system 2. Coronary artery disease as described above including but not limited to: A. 60% proximal and mid LAD disease B. Minimal proximal circumflex disease C. Greater than 95% ostial RCA stenosis which is mildly calcified with the distal posterolaterals filling slowly because of left to right collaterals 3. Status post angioplasty stenting of ostial RCA with trivial extend (4.0 x 12 Synergy) dilated to approximately 4.4 mm with excellent result. Recommendation discussion: I believe we achieved a very good result, with regard to stenting Mrs. Velez's critical ostial RCA lesion. Echo, this is a cause of her symptoms. Her LAD disease is at least intermediate, but is a little change from her previous catheterization in 2015. She will continue on aspirin and Plavix be watched closely overnight. She will need to avoid squatting straining or lifting for the next week. Anesthesia: minimal conscious sedation Surgeon / Physician: Erlin Roldan Telephone Sales Representative: other Estimated blood loss: minimal Specimens: none sent Condition: stable Disposition: floor - Medications / Follow-up
[2017-02-13] MEDS ORDERED: ROSUVASTATIN 10 MG TABLET PO SCH (21:00)
[2017-02-13] MEDS ORDERED: MONTELUKAST 10 MG TABLET PO SCH (21:00)
[2017-02-13] MEDS: BISOPROLOL 5 MG TABLET PO SCH (21:21)
[2017-02-13] MEDS: PANTOPRAZOLE 40 MG TABLET PO SCH (21:22)
[2017-02-13] MEDS: CILOSTAZOL 50 MG TABLET PO SCH (21:25)
[2017-02-14] MEDS: NITROGLYCERIN 2% OINT 1 INCH/GM PACK TOP SCH ×3 (00:39→13:21)
[2017-02-14 05:44] LABS: Basophils % 0.4 % (0.0-0.8); Eosinophils # 0.1 10*3/uL (0.0-0.87); Eosinophils % 0.8 % (0.00-10.9); Hematocrit 37.3 VOL% (35.7-47.0); Hemoglobin 12.9 GM/DL (12.0-16.0); Immature Granulocytes % 0.4 %; Immature Granulocytes Absolute 0.03 #; Lymphocytes # 1.6 10*3/uL (1.4-4.0); Lymphocytes % 20.1 % (21.3-54.2); Mean Corpuscular HGB Conc 34.6 GM/DL (32-36); Mean Corpuscular Hemoglobin 32 PG (27-34); Mean Corpuscular Volume 91.2 FL (87-102); Mean Platelet Volume 9.4 FL (9.6-12.0); Monocytes # 0.6 10*3/uL (0.11-0.8); Monocytes % 7.6 % (1.7-12.7); Neutrophils # 5.6 10*3/uL (1.4-7.4); Neutrophils % 70.7 % (38.7-73.9); Platelet Count 224 T/CUMM (130-400); Red Blood Count 4.09 MC/CUMM (3.8-5.5); Red Cell Distribution Width 12.6 % (9.3-17.3); White Blood Count 7.9 T/CUMM (4-12)
[2017-02-14] MEDS: SODIUM CHLORIDE 0.9% 1,000 ML IV SCH (06:10)
[2017-02-14 06:14] LABS: Calcium 8.5 MG/DL (8.5-10.1); Magnesium 2.4 MG/DL (1.8-2.4); Osmolality,Calculated 276.5 MOS/KG (273-304)
[2017-02-14 06:20] LABS: Blood Urea Nitrogen 10 MG/DL (7-18); Calcium 8.6 MG/DL (8.5-10.1); Glucose 112 MG/DL (74-106); Osmolality,Calculated 276.5 MOS/KG (273-304); Potassium 3.8 MMOL/L (3.5-5.1); Sodium 139 MMOL/L (136-145)
[2017-02-14 06:23] LABS: Troponin I Only 0.144 NG/ML (0.00-0.045)
[2017-02-14] MEDS ORDERED: LEVOTHYROXINE 50 MCG TABLET PO SCH (07:00)
--- NOTE | 2017-02-14 07:56 | EKG Report ---
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
[2017-02-14] MEDS ORDERED: ASPIRIN EC 81 MG TABLET PO SCH (09:00)
[2017-02-14] MEDS: POTASSIUM CHLORIDE 20 MEQ TABLET PO SCH ×2 (09:15→14:06)
[2017-02-14] MEDS: ISOSORBIDE DINITRATE 10 MG TABLET PO SCH (09:15)
[2017-02-14] MEDS: CILOSTAZOL 50 MG TABLET PO SCH (09:15)
[2017-02-14] MEDS: ENOXAPARIN 80 MG/0.8 ML SYRINGE SUBCUT SCH (09:15)
[2017-02-14] MEDS: BISOPROLOL 5 MG TABLET PO SCH (09:15)
[2017-02-14] MEDS: CLOPIDOGREL 75 MG TABLET PO SCH (09:16)
[2017-02-14] MEDS: INSULIN REGULAR 100 UNIT/ML SUBCUT SCH ×2 (09:16→13:20)
[2017-02-14] MEDS: MAGNESIUM OXIDE 400 MG TABLET PO SCH (09:16)
[2017-02-14] MEDS: PANTOPRAZOLE 40 MG TABLET PO SCH (09:16)
--- NOTE | 2017-02-14 10:48 | Discharge Summary ---
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 GUERRA PCP: DR. MATAMOROS Ms. Velez is a 76 year old female with a history of coronary artery disease status post coronary artery stent placement, hypercholesterolemia, sick sinus syndrome with symptomatic bradycardia, status post dual-chamber pacemaker. She had prior coronary stenting and required repeat stenting for in- stent stenosis previously. The patient has done well though until recently with the last 2-3 days and had an episode of midsternal chest pain with shortness of breath. She is not clear if this is similar to what she's had before. With this she has felt fatigue and loss of energy. She continued to have episodes of the chest pain. In light of her findings it was felt that this patient would best be served with cardiac catheterization for reevaluation of the situation and coronary arteries. Yesterday, she underwent left heart catheterization by Dr. Roldan and is now status post angioplasty stenting of the ostial RCA with a 4.5 x 12 mm Synergy drug-eluting stent with excellent result. This morning, she is doing well and tells me she feels better today than she has in quite some time. She has been ambulating back and forth to the bathroom and voiding without difficulty. She tolerated breakfast without difficulty. Her vital signs are stable. Labs are stable with normal H&H and creatinine 0.8. Her right groin dressing has some mild sanguineous drainage and cath site has a mild ooze. I changed her dressing and she has some mild ecchymosis but no tenderness, hematoma, or bruit at site. Femoral pulse is 3+. Peripheral pulses are present and palpable. She has ambulated around the unit without difficulty. At this time she is ready and anxious for discharge. I stressed the importance of continuing with DAPT. She was instructed to avoid squatting, straining, or lifting for the next week. She will follow up with Dr. Guerra in 1-2 weeks. She will be discharged home on the following medications: Levothyroxine Tab [Synthroid Tab] 25 mcg PO DAILY@0700 Magnesium Oxide 400 mg PO BID Omeprazole [Prilosec] 20 mg PO BID Montelukast Tab [Singulair Tab] 10 mg PO BEDTIME Isosorbide Dinitrate [Isordil] 10 mg PO BID #60 tablet Clopidogrel [Plavix] 75 mg PO DAILY Clorazepate [Tranxene] 3.75 mg PO Q6H PRN PRN Reason: Anxiety Bisoprolol Fumarate 5 mg PO BID amLODIPine [Norvasc] 2.5 mg PO DAILY Aspirin [Aspirin EC] 81 mg PO DAILY Rosuvastatin Calcium [Crestor] 5 mg PO BEDTIME #30 tablet Potassium Chloride [Klor-Con M20] 20 meq PO QID Cilostazol [Pletal] 50 mg PO BID Ergocalciferol (Vitamin D2) [Vitamin D2] 50,000 unit PO Q7DAY Nitroglycerin [Nitroglycerin SL Tab] 0.4 mg SL Q5M PRN #1 bottle PRN Reason: Pain She was sent in prescriptions for Nitroglycerin SL and Crestor. 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 Guerra in 1-2 weeks with JOAN w/ . 02/28/17 1:00 labs; 1:30 appointment) Discharge Plan - Discharge Data Disposition: Disch To Home/Self Care Condition at Discharge: Stable Discharge Diet: heart healthy Activity: no lifting (Over 5 pounds for 1 week.), other (Post-cath expectations) Hygiene: may shower (No tub baths 1 week), other (Post cath expectations) Weight Bearing at Discharge: full weight bearing, other (Post cath expectations) Driving: other (Post cath expectations) Contact your physician if you experience:: fever over 101, Difficulty voiding, Redness or swelling, Nausea/Vomiting, Shortness of breath, Bleeding, pain uncontrolled by pain medications - Discharge Medications Continue Levothyroxine Tab [Synthroid Tab] 25 mcg PO DAILY@0700 Magnesium Oxide 400 mg PO BID Omeprazole [Prilosec] 20 mg PO BID Montelukast Tab [Singulair Tab] 10 mg PO BEDTIME Isosorbide Dinitrate [Isordil] 10 mg PO BID #60 tablet Clopidogrel [Plavix] 75 mg PO DAILY Clorazepate [Tranxene] 3.75 mg PO Q6H PRN PRN Reason: Anxiety Bisoprolol Fumarate 5 mg PO BID amLODIPine [Norvasc] 2.5 mg PO DAILY Aspirin [Aspirin EC] 81 mg PO DAILY Rosuvastatin Calcium [Crestor] 5 mg PO BEDTIME #30 tablet Potassium Chloride [Klor-Con M20] 20 meq PO QID Cilostazol [Pletal] 50 mg PO BID Ergocalciferol (Vitamin D2) [Vitamin D2] 50,000 unit PO Q7DAY Nitroglycerin [Nitroglycerin SL Tab] 0.4 mg SL Q5M PRN #1 bottle PRN Reason: Pain - Follow Up or Referral Follow Up: Son Guerra MD [Physician] - 2 Weeks (Follow up with Dr. Guerra in 1-2 weeks with BMP w/ Mg. 02/28/17 1:00 labs; 1:30 appointment) - Forms/Instructions Instructions: Left Heart Catheterization (DC), Heart Healthy Diet (GEN), Coronary Intravascular Stent Placement, Agricultural Engineering Technicians (GEN) Exam - Constitutional Vitals: Period Temp Pulse Resp BP Sys/Christensen Pulse Ox Last 24 Hr 97.0 F-98.1 F 72-119 16-20 98-155/53-95 93-100 Exam: General: Present: Appears Well, No Apparent Distress. Pleasant and cooperative. Appears comfortable. HEENT: Present: PERRL, Normocephaly, atraumatic. Mucus Membranes Moist. No jaundice noted. Conjunctiva moist and clear, sclerae anicteric Neck: Present: Supple Neck, Midline Trachea, No Masses, No Bruit, No tenderness Cardiac: Present: Regular Rate and Rhythm, No Murmur Lungs: Present: Clear to auscultation bilaterally, no wheeze, rhonchi, rales. Neuro: Present: Awake, alert, and oriented x3. Moves all extremities well without hemiparesis or paralysis. Grossly Intact. Absent: Resting Tremor, Essential Tremor Abdomen: Present: Soft, Active Bowel Sounds, No Masses, Non-Tender, nondistended. No abdominal bruit or thrill noted. Skin: Present: Clear. Absent: Rash, No skin breakdown. Back: Normal inspection, no vertebral tenderness. Musculoskeletal: Present: No Fluid Collection, No Pain, Normal Range of Motion Extremities: Present: Normal Gait, No Clubbing, No Cyanosis, Upper Extr. Pulses 2+, Lower Extr. Pulses 2+, No edema. Capillary refill less than 3 seconds. Right groin: Mild oozing, no profuse bleeding, no hematoma or bruit. Femoral pulse 3+. Peripheral pulses present and palpable. Discharge Results Procedures and tests throughout hospitalization: Pending Orders 02/15/17 04:00 BMP w/ Mg [Basic Metabolic Panel w/Mg] IN AM 02/16/17 04:00 BMP w/ Mg [Basic Metabolic Panel w/Mg] IN AM Left heart catheterization 02/13/17: Impression: 1. Right dominant system 2. Coronary artery disease as described above including but not limited to: A. 60% proximal and mid LAD disease B. Minimal proximal circumflex disease C. Greater than 95% ostial RCA stenosis which is mildly calcified with the distal posterolaterals filling slowly because of left to right collaterals 3. Status post angioplasty stenting of ostial RCA with trivial extend (4.0 x 12 Synergy) dilated to approximately 4.4 mm with excellent result. Recommendation discussion: I believe we achieved a very good result, with regard to stenting Mrs. Velez's critical ostial RCA lesion. Echo, this is a cause of her symptoms. Her LAD disease is at least intermediate, but is a little change from her previous catheterization in 2014. She will continue on aspirin and Plavix be watched closely overnight. She will need to avoid squatting straining or lifting for the next week. Labs on day of discharge: Labs from last 24 hours 02/14/17 02/14/17 02/14/17 12:03 08:41 05:09 WBC RBC Hgb Hct MCV MCH MCHC RDW Plt Count MPV Neut % (Auto) Lymph % (Auto) [place] % (Auto) Eos % (Auto) Baso % (Auto) Neut # (Auto) Lymph # (Auto) [place] # (Auto) Eos # (Auto) Baso # (Auto) Immature Gran % Nucleated RBC % Immature Gran # Nucleated RBCs # Sodium 139 Potassium 3.8 Chloride 107 Carbon Dioxide 23 Anion Gap 12.8 BUN 10 Creatinine 0.80 GFR Calculation 70 BUN/Creatinine Ratio 12.00 Glucose 112 H POC Glucose 74 95 Calculated Osmolality 276.5 Calcium 8.6 Magnesium Total Creatine Kinase 112 D CK-MB (CK-2) 2.5 D CK and CKMB Interp Troponin I 0.144 H D 02/14/17 02/14/17 02/13/17 05:09 05:09 19:56 WBC 7.9 D RBC 4.09 Hgb 12.9 Hct 37.3 MCV 91.2 MCH 32 MCHC 34.6 RDW 12.6 Plt Count 224 D MPV 9.4 L Neut % (Auto) 70.7 Lymph % (Auto) 20.1 L [place] % (Auto) 7.6 Eos % (Auto) 0.8 Baso % (Auto) 0.4 Neut # (Auto) 5.6 Lymph # (Auto) 1.6 [place] # (Auto) 0.6 Eos # (Auto) 0.1 Baso # (Auto) 0.0 Immature Gran % 0.4 Nucleated RBC % 0.0 Immature Gran # 0.03 Nucleated RBCs # 0.00 Sodium 139 Potassium 4.0 Chloride 107 Carbon Dioxide 23 Anion Gap 13.0 BUN 10 Creatinine 0.80 GFR Calculation 70 BUN/Creatinine Ratio 12.00 Glucose 112 H POC Glucose 95 Calculated Osmolality 276.5 Calcium 8.5 Magnesium 2.4 Total Creatine Kinase CK-MB (CK-2) CK and CKMB Interp Troponin I 02/13/17 02/13/17 02/13/17 16:34 16:06 15:42 WBC RBC Hgb Hct MCV MCH MCHC RDW Plt Count MPV Neut % (Auto) Lymph % (Auto) [place] % (Auto) Eos % (Auto) Baso % (Auto) Neut # (Auto) Lymph # (Auto) [place] # (Auto) Eos # (Auto) Baso # (Auto) Immature Gran % Nucleated RBC % Immature Gran # Nucleated RBCs # Sodium Potassium Chloride Carbon Dioxide Anion Gap BUN Creatinine GFR Calculation BUN/Creatinine Ratio Glucose POC Glucose 98 73 L 68 L Calculated Osmolality Calcium Magnesium Total Creatine Kinase CK-MB (CK-2) CK and CKMB Interp Troponin I 02/13/17 15:41 WBC RBC Hgb Hct MCV MCH MCHC RDW Plt Count MPV Neut % (Auto) Lymph % (Auto) [place] % (Auto) Eos % (Auto) Baso % (Auto) Neut # (Auto) Lymph # (Auto) [place] # (Auto) Eos # (Auto) Baso # (Auto) Immature Gran % Nucleated RBC % Immature Gran # Nucleated RBCs # Sodium Potassium Chloride Carbon Dioxide Anion Gap BUN Creatinine GFR Calculation BUN/Creatinine Ratio Glucose POC Glucose Calculated Osmolality Calcium Magnesium Total Creatine Kinase 467 H CK-MB (CK-2) 9.6 H CK and CKMB Interp 2.1 Troponin I 0.076 H D DS: Provider Date of admission: 02/12/17 19:44 Primary care physician: Everton Matamoros MD Attending physician on admission: Son Guerra MD Consults: 02/13/17 01:13 Consult to Pastoral Services [CONS] Routine Comment: Pastoral Screen: Request Weather Reporter Visit Pastoral Screen Source of Request: Patient 02/13/17 15:20 Consult to Cardiac Rehabilitation [CONS] Routine Reason for Cardiac Rehabilitation: Appt Out Pt Cardiac Rehab Consult Comment: rca stent Discharging clinician: DANIELLE Ochoa Expected date of discharge: 02/14/17 <Sergio Pinto - Last Filed: 02/14/17 15:06> Hospital Course - Hospital Course Hospital Course: Patient today personally interviewed and examined and chart reviewed. I discussed this patient's case and discharge with Jeny Collado HAND WASHER. In addition and summation the patient reached maximum hospital benefit. She is without any further symptomatology for which she was admitted with. She feels better. She will be discharged and follow-up as an outpatient with Dr. Guerra. She voices understanding of her instructions and plans.
[2017-02-14 12:36] VITALS: BP 116/59
== END 2017-02-14 15:28 | disposition home or self-care (01) | DRG 247 ==
LOC: EDBD → EDUNIT# → N.ED 17:31 → N.EDINP 19:44 → N.TELEN 20:12
PROVIDERS: ADMIT Internal Medicine Cardiovascular Disease; ATTEND Internal Medicine Cardiovascular Disease

== ENCOUNTER 2019-08-28 13:40 | Observation (INO) ==
[2019-08-28] MEDS ORDERED: ASPIRIN 325 MG TABLET PO STA (14:17)
[2019-08-28] MEDS ORDERED: ALUM/MAG/SIMETH/LIDO VISC 1:1 30 ML BOTTLE PO STA (14:19)
[2019-08-28] MEDS ORDERED: ALUM/MAG/SIMETH/LIDO VISC 1:1 30 ML BOTTLE PO ONE (14:20)
[2019-08-28 14:25] LABS: Basophils % 0.5 % (0.0-0.8); Eosinophils # 0.1 10*3/uL (0.0-0.87); Hematocrit 35.3 VOL% (35.7-47.0); Hemoglobin 11.2 GM/DL (12.0-16.0); Immature Granulocytes % 0.2 %; Immature Granulocytes Absolute 0.01 #; Lymphocytes # 1.5 10*3/uL (1.4-4.0); Lymphocytes % 24.5 % (21.3-54.2); Mean Corpuscular HGB Conc 31.7 GM/DL (32-36); Mean Platelet Volume 9.8 FL (9.6-12.0); Monocytes % 8.8 % (1.7-12.7); Platelet Count 230 T/CUMM (130-400); Red Blood Count 4.36 MC/CUMM (3.8-5.5); Red Cell Distribution Width 15.6 % (9.3-17.3); White Blood Count 5.9 T/CUMM (4-12)
[2019-08-28 14:38] LABS: INR 0.9; PT Patient Result 10.3 SECS (9.6-12.2); Partial Thromboplastin Time 26.3 SECS (20.8-36.0)
[2019-08-28 14:43] LABS: Alanine Aminotransferase 12 U/L (13-56); Albumin 3.1 G/DL (3.4-5.0); Alkaline Phosphatase 97 U/L (45-117); Aspartate Amino Transferase 16 U/L (0-37); Bilirubin,Total < 0.39 MG/DL (0.2-1.0); Blood Urea Nitrogen 9 MG/DL (7-18); Calcium 8.8 MG/DL (8.5-10.1); Estimated Glom Filtration Rate 68 ML/MIN; Glucose 99 MG/DL (74-106); Osmolality,Calculated 279.3 MOS/KG (273-304); Total Protein 7.1 G/DL (6.4-8.3)
[2019-08-28] MEDS ORDERED: MAGNESIUM SULF RIDER 2 GM in PREMIX 1 EACH IV PRN (18:16)
[2019-08-28] MEDS ORDERED: MAGNESIUM SULF RIDER 4 GM in PREMIX 1 EACH IV PRN (18:16)
[2019-08-28] MEDS ORDERED: INFLUENZA VIRUS VACCINE 0.5 ML SYRINGE IM ONE (18:25)
[2019-08-28] MEDS: SODIUM CHLORIDE 0.9% 1,000 ML IV SCH (19:02)
[2019-08-28] MEDS ORDERED: NITROGLYCERIN SL 0.4 MG TABLET SL PRN (19:23)
[2019-08-28] MEDS ORDERED: MAGNESIUM HYDROXIDE SUSP 30 ML UDCUP PO PRN (19:23)
[2019-08-28] MEDS: DOCUSATE SODIUM 100 MG CAPSULE PO SCH (20:52)
[2019-08-28] MEDS: ACETAMINOPHEN 325 MG TABLET PO SCH (20:53)
[2019-08-28] MEDS: POTASSIUM CHLORIDE 10 MEQ TABLET PO SCH (20:53)
[2019-08-28] MEDS: CARVEDILOL 6.25 MG TABLET PO SCH (20:54)
[2019-08-28] MEDS: ALUMINUM/MAGNES/SIMETH MAX STR 30 ML UDCUP PO SCH (20:54)
[2019-08-28] MEDS: GABAPENTIN 100 MG CAPSULE PO SCH (20:54)
[2019-08-28] MEDS ORDERED: LIDOCAINE 5% PATCH TRANSDERM ONE (21:00)
[2019-08-28] MEDS ORDERED: DONEPEZIL 5 MG TABLET PO SCH (21:00)
[2019-08-28] MEDS ORDERED: ENOXAPARIN 40 MG/0.4 ML SYRINGE SUBCUT SCH (21:00)
[2019-08-29] MEDS: SODIUM CHLORIDE 0.9% 1,000 ML IV SCH (02:26)
[2019-08-29] MEDS ORDERED: LEVOTHYROXINE 25 MCG TABLET PO SCH (06:30)
[2019-08-29] MEDS ORDERED: PANTOPRAZOLE 40 MG TABLET PO SCH (07:30)
[2019-08-29] MEDS ORDERED: ERGOCALCIFEROL 50,000 UNIT CAPSULE PO SCH (09:00)
[2019-08-29] MEDS ORDERED: amLODIPine 2.5 MG TABLET PO SCH (09:00)
[2019-08-29] MEDS ORDERED: OLOPATADINE 0.1% OPH SOLN 5 ML BOTTLE BOTH EYES SCH (09:00)
[2019-08-29] MEDS ORDERED: ISOSORBIDE DINITRATE 20 MG TABLET PO SCH (09:00)
[2019-08-29] MEDS ORDERED: ASPIRIN EC 81 MG TABLET PO SCH (09:00)
[2019-08-29] MEDS ORDERED: MAGNESIUM HYDROXIDE SUSP 30 ML UDCUP PO PRN (09:15)
[2019-08-29] MEDS: POTASSIUM CHLORIDE 10 MEQ TABLET PO SCH (09:56)
[2019-08-29] MEDS: ALUMINUM/MAGNES/SIMETH MAX STR 30 ML UDCUP PO SCH (09:56)
[2019-08-29] MEDS: DOCUSATE SODIUM 100 MG CAPSULE PO SCH (09:57)
[2019-08-29] MEDS: ACETAMINOPHEN 325 MG TABLET PO SCH (09:58)
[2019-08-29] MEDS: GABAPENTIN 100 MG CAPSULE PO SCH (09:58)
[2019-08-29] MEDS: CARVEDILOL 6.25 MG TABLET PO SCH (09:59)
[2019-08-29 11:21] VITALS: BP 135/71
== END 2019-08-29 12:00 ==
LOC: EDBD → EDUNIT# → N.EDINP 13:40 → N.ED 13:40 → N.TELEN 17:47
PROVIDERS: ADMIT Internal Medicine Cardiovascular Disease; ATTEND Internal Medicine Cardiovascular Disease